=== PATIENT | male | born 1995 | race Caucasian/White ===

== ENCOUNTER 2016-11-12 15:25 | Emergency (ER) | payer OTHER ==
[~2016-11-12] VITALS: Ht 180.3 cm; Wt 63.1 kg
[~2016-11-12 15:25] MED LIST: ALPHAGAN 0100 DROP/5 BOTH EYES; ALPHAGAN 0100 DROP/5 RIGHT EYE; BUSPAR10 MG PO; CITALOPRAM HBR20 MG PO; COSOPT EYE DROPS5 ML RIGHT EYE; FLONASE16 G1 BOTH NARES; KLONOPIN0.5 M1 PO; KLONOPIN1 MG PO; PRED FORTE100 DROP/5 BOTH EYES; REFRESH PLUS1 EACH BOTH EYES; SEROQUEL XR50 MG PO; STEROID EYE; VALIUM2 MG PO; VENLAFAXINE HC150 M1 PO; XALATAN2.5 ML RIGHT EYE; XANAX0.5 MG PO; ZIPRASIDONE HCL80 MG PO; ZOLOFT50 MG PO
[2016-11-12 15:56] LABS: ADD MIUA? YES; BILIRUBIN NEGATIVE; BLOOD MODERATE; COLOR YELLOW ((YELLOW)); GLUCOSE (STRIP) NEGATIVE; KETONES NEGATIVE; LEUKOCYTES NEGATIVE; NITRITE NEGATIVE; PROTEIN (STRIP) NEGATIVE; SPECIFIC GRAVITY 1.012 (1.000-1.030); UROBILINOGEN 0.2 MG/DL (0.2-1.0)
[2016-11-12 16:07] LABS: HEMATOCRIT 43.8 % (38.0-50.0); MCH 30.3 PG (29.0-34.0); MEAN PLAT.VOLUME 10.7 uM^3 (9.0-12.4); PLATELET COUNT 220 K/uL (156-360); RBC DIS.WIDTH-CV 13.1 % (11.8-14.6); RBC DIS.WIDTH-SD 43.3 % (39-53); RED BLOOD COUNT 4.92 M/uL (4.00-5.50); WHITE BLOOD COUNT 7.6 K/uL (4.1-10.2)
[2016-11-12 16:11] LABS: AMORPHOUS URATES CRYSTALS 3+; BACTERIA NONE SEEN /HPF; CASTS NONE SEEN /LPF; CRYSTALS PRESENT; EPITHELIAL CELLS NONE SEEN /HPF; MUCUS NONE SEEN /LPF; RED BLOOD CELLS RARE /HPF (0-5); UCUL ADDED? NO; WHITE BLOOD CELLS NONE SEEN /HPF (0-5)
[2016-11-12 16:20] LABS: CHLORIDE 111 mEq/L (99-109); POTASSIUM 3.8 mEq/L (3.7-5.4); SODIUM 142 mEq/L (136-147)
[2016-11-12 16:22] LABS: GLUCOSE 113 mg/dL (70-99)
[2016-11-12 16:23] LABS: ANION GAP 9 MEQ/L (2-14)
[2016-11-12 16:24] LABS: TOTAL BILIRUBIN 0.8 mg/dL (0.0-1.0)
[2016-11-12 16:25] LABS: ALKALINE PHOSPHATASE 58 IU/L (3-129)
[2016-11-12 16:26] LABS: GFR ESTIMATE (CALCULATED) > 59 mL/min/
[2016-11-12 16:27] LABS: UREA NITROGEN (BUN) 14 mg/dL (9-23)
[2016-11-12] MEDS ORDERED: unable to obtain (19:51)
[2016-11-12] MEDS ORDERED: CITRATE OF MAG296 ML PO (19:51)
[2016-11-12 20:00] VITALS: BP 103/66
== END 2016-11-12 20:08 | disposition home or self-care (01) ==
LOC: EME 15:25
DX: R10.31 Right lower quadrant pain (principal); K59.00 Constipation, unspecified; N50.811 Right testicular pain; N20.0 Calculus of kidney; R31.9 Hematuria, unspecified; F17.200 Nicotine dependence, unspecified, uncomplicated
CPT/HCPCS: 74176; 76870; 80053; 81003; 85027; 99281; 99284

== ENCOUNTER 2017-04-16 12:28 | Emergency (ER) | payer OTHER ==
[~2017-04-16] VITALS: Ht 180.3 cm; Wt 65.6 kg
[~2017-04-16 12:28] MED LIST changes: +CITRATE OF MAG296 ML PO; +unable to obtain
[2017-04-16 14:14] LABS: HEMATOCRIT 45.6 % (38.0-50.0); HEMOGLOBIN 15.5 G/DL (12.5-16.6); MCH 30.5 PG (29.0-34.0); MCV 89.8 FL (86-99); PLATELET COUNT 199 K/uL (156-360); RBC DIS.WIDTH-CV 13.1 % (11.8-14.6); RBC DIS.WIDTH-SD 43.3 % (39-53); RED BLOOD COUNT 5.08 M/uL (4.00-5.50); WHITE BLOOD COUNT 11.8 K/uL (4.1-10.2)
[2017-04-16 14:30] LABS: ALBUMIN 4.7 g/dL (3.2-4.8); CHLORIDE 109 mEq/L (99-109); POTASSIUM 4.1 mEq/L (3.7-5.4); SODIUM 141 mEq/L (136-147)
[2017-04-16 14:32] LABS: GLUCOSE 110 mg/dL (70-99); TOTAL PROTEIN 7.4 g/dL (6.4-8.3)
[2017-04-16 14:34] LABS: TOTAL BILIRUBIN 0.4 mg/dL (0.0-1.0)
[2017-04-16 14:36] LABS: ALKALINE PHOSPHATASE 66 IU/L (3-129); CREATININE 1.2 mg/dL (0.6-1.3); GFR ESTIMATE (CALCULATED) > 59 mL/min/ (58.99-99999)
[2017-04-16 14:37] LABS: UREA NITROGEN (BUN) 16 mg/dL (9-23)
[2017-04-16 14:38] LABS: AST (GOT) 15 IU/L (2-34)
[2017-04-16 14:39] LABS: ALT (GPT) 15 IU/L (3-49); LIPASE 8 U/L (1.0-51.0)
[2017-04-16 14:51] LABS: APPEARANCE SL.HAZY ((CLEAR)); BILIRUBIN NEGATIVE; BLOOD SMALL; COLOR YELLOW ((YELLOW)); GLUCOSE (STRIP) NEGATIVE; KETONES NEGATIVE; LEUKOCYTES NEGATIVE; NITRITE NEGATIVE; PROTEIN (STRIP) NEGATIVE; UROBILINOGEN 0.2 MG/DL (0.2-1.0)
[2017-04-16] MEDS ORDERED: PERCOCET 5/31 TABLET PO (14:54)
[2017-04-16] MEDS ORDERED: TORADOL10 MG PO (14:54)
[2017-04-16] MEDS ORDERED: ZOFRAN ODT4 MG PO (14:54)
[2017-04-16 14:56] LABS: BACTERIA NONE SEEN /HPF; EPITHELIAL CELLS RARE /HPF; MUCUS TRACE /LPF; UCUL ADDED? NO; WHITE BLOOD CELLS 0-5 /HPF (0-5)
[2017-04-16 15:46] VITALS: BP 128/71
== END 2017-04-16 15:45 | disposition home or self-care (01) ==
LOC: EME 12:28
PROVIDERS: Physician Assistant
DX: N13.2 Hydronephrosis with renal and ureteral calculous obstruction (principal); Z87.442 Personal history of urinary calculi; H54.62 Unqualified visual loss, left eye, normal vision right eye; F41.9 Anxiety disorder, unspecified; F17.200 Nicotine dependence, unspecified, uncomplicated; H40.9 Unspecified glaucoma
CPT/HCPCS: 74176; 80053; 81003; 83690; 85027; 99281; 99284

== ENCOUNTER 2017-11-19 23:27 | Emergency (ER) | payer OTHER ==
[~2017-11-19] VITALS: Ht 177.8 cm; Wt 67.3 kg
[~2017-11-19 23:27] MED LIST changes: +PERCOCET 5/31 TABLET PO; +TORADOL10 MG PO; +ZOFRAN ODT4 MG PO
[2017-11-19 23:29] VITALS: BP 123/70
== END 2017-11-20 00:44 | disposition left against medical advice (07) ==
LOC: EME 23:27
PROC: 3E0234Z Introduction of Serum, Toxoid and Vaccine into Muscle, Percutaneous Approach (ICD-10-PCS; principal; 2017-11-19)
DX: S61.411A Laceration without foreign body of right hand, initial encounter (principal); W22.8XXA Striking against or struck by other objects, initial encounter; W25.XXXA Contact with sharp glass, initial encounter; H40.9 Unspecified glaucoma; F17.200 Nicotine dependence, unspecified, uncomplicated; Z86.69 Personal history of other diseases of the nervous system and sense organs
CPT/HCPCS: 73130; 99281; 99283